=== PATIENT | female | born 1985 | race Caucasian/White ===

== ENCOUNTER → 2016-10-14 | Outpatient (CLI) | payer BC | LOC: KOH-I 15:51 | DX: R05 Cough (principal); J30.89 Other allergic rhinitis; J45.991 Cough variant asthma; B89 Unspecified parasitic disease | CPT/HCPCS: 71020 ==

== ENCOUNTER → 2022-03-01 | Day surgery (SDC) | payer BC ==
[~2022-03-01] MED LIST: ADVAIR 250-501 EACH INH; ASHLYNA PO; CLARITIN10 MG PO; DYMISTA NASAL S23 GM; HYDROCODON-ACE1 EAC4 PO; PRAVASTATIN SOD10 MG PO; SINGULAIR10 MG PO; VITAMIN B12 GUMMIES PO; WOMEN'S DAILY1 EAC1 PO
== END | disposition home or self-care (01) ==
LOC: OR 02-25 10:00
DX: K80.64 Calculus of gallbladder and bile duct with chronic cholecystitis without obstruction (principal); J45.909 Unspecified asthma, uncomplicated; Z88.1 Allergy status to other antibiotic agents
CPT/HCPCS: 84703; C1729; J1100; J1170; J1885; J2250; J2405; J2704; J3010

== ENCOUNTER 2022-04-01 12:10 | Emergency (ER) | payer BC ==
[2022-04-01] MEDS ORDERED: PAXLOVID 300-11 EACH PO (13:45)
== END 2022-04-01 14:10 | disposition home or self-care (01) ==
LOC: ER1 12:10
DX: U07.1 COVID-19 (principal); E78.5 Hyperlipidemia, unspecified; Z88.1 Allergy status to other antibiotic agents; Z88.8 Allergy status to other drugs, medicaments and biological substances
CPT/HCPCS: 0240U; 71045; 99283